=== PATIENT | female | born 1965 | race Caucasian/White ===

== ENCOUNTER 2023-08-17 06:49 | Inpatient (IN) | payer BC ==
[2023-08-17] MEDS ORDERED: DIAZEPAM 2 MG TABLET ONE ×2 (07:29→07:32)
[2023-08-17 07:45] LABS: Absolute Eosinophils 0.1 K/uL (0-0.5); Absolute Lymphocytes (CBC) 1.6 K/uL (0.7-4.9); Absolute Monocytes 0.4 K/uL (0.1-1.3); Basophils % 0.5 % (0-1.3); Eosinophils % 2.5 % (0-4.4); Hemoglobin 14.4 g/dL (12.0-15.0); MCH 33.9 pg (27.0-35.0); MCHC 33.4 g/dL (32.0-36.0); MCV 101.3 fL (80-100); MPV 7.7 fL (7.6-11.3); Nucleated Red Blood Cells % 0.2 % (0-0); Platelets 184 thou/uL (152-406); RBC Red Blood Cell Count 4.24 M/uL (3.86-4.86); Red Cell Distribution Width 12.2 % (12.1-15.2)
[2023-08-17 07:46] LABS: PT Prothrombin Time 10.2 SECONDS (9.5-12.5); PTT, Activated Partial Thromb 31.5 SECONDS (24.3-36.9); Protime INR 0.93
--- NOTE | 2023-08-17 08:02 | RAD REPORT ---
EXAM DESCRIPTION: Lauren Single View08/17/2023 7:56 am CLINICAL HISTORY: Shortness of breath COMPARISON: none FINDINGS: Lungs are hyperaerated. The lungs appear clear of acute infiltrate. The heart is normal size IMPRESSION: No acute abnormalities displayed
[2023-08-17 08:03] LABS: Albumin 4.2 g/dL (3.4-5.0); Albumin/Globulin Ratio 1.1 (1.1-1.8); Anion Gap 11.3 mEq/L (5.0-15.0); Bilirubin Direct 0.4 mg/dL (0-0.2); Bilirubin Indirect, Calculated 1.3 mg/dL (0.2-0.8); Bilirubin Total 1.7 mg/dL (0.2-1.0); Globulin 3.7 g/dL (2.3-3.5); Magnesium 1.6 mg/dL (1.6-2.4); Potassium 4.3 mEq/L (3.5-5.1); Protein, Total 7.9 g/dL (6.4-8.2); Troponin High Sensitivity 3.3 pg/mL (<58.9)
--- NOTE | 2023-08-17 08:22 | RAD REPORT ---
EXAM DESCRIPTION: CT - Head Brain Wo Cont - 08/17/2023 8:12 am CLINICAL HISTORY: Blurred vision and dizziness COMPARISON: None TECHNIQUE: Computed axial tomography of the head was obtained. IV contrast was not requested. All CT scans are performed using dose optimization technique as appropriate and may include automated exposure control or mA/KV adjustment according to patient size. FINDINGS: An intracranial bleed is not seen The ventricles are normal in caliber No extra-axial fluid collection is noted. No significant hypodensity within the brain. Fluid within the sinuses/ mastoids is not seen. IMPRESSION: No acute intracranial abnormality is seen If patient's symptoms persist MRI of the brain would be recommended
--- NOTE | 2023-08-17 08:28 | RAD REPORT ---
EXAM DESCRIPTION: Johan Angio08/17/2023 8:12 am CLINICAL HISTORY: Diplopia COMPARISON: None TECHNIQUE: 100 cc Isovue [address] angiogram of the neck was obtained. 3D MIPS reconstruction performed. All CT scans are performed using dose optimization technique as appropriate and may include automated exposure control or mA/KV adjustment according to patient size. FINDINGS: Visualized great vessels unremarkable Minimal plaque is present within the internal carotid, external carotid, common carotid and vertebral arteries bilaterally. Vertebral arteries unremarkable No dissection is seen. No high-grade stenosis Nascet crieria Mild stenosis 0 to 49 % Moderate stenosis 50-69% Severe stenosis 70-99% IMPRESSION: No significant abnormality is displayed
--- NOTE | 2023-08-17 08:28 | RAD REPORT ---
EXAM DESCRIPTION: CTHead angio08/17/2023 8:12 am CLINICAL HISTORY: Blurred vision and dizziness COMPARISON: none TECHNIQUE: 100 cc Isovue [address] angiogram of the head was obtained. 3D MIPS reconstruction performed. All CT scans are performed using dose optimization technique as appropriate and may include automated exposure control or mA/KV adjustment according to patient size. FINDINGS: The distal internal carotid, basilar, anterior cerebral, middle cerebral and posterior cer ebral arteries do not demonstrate a significant stenosis An aneurysm is not seen No large vessel occlusion IMPRESSION: No significant abnormality is displayed
--- NOTE | 2023-08-17 09:26 | RAD REPORT ---
EXAM DESCRIPTION: US - Abdomen Exam Limited - 08/17/2023 8:46 am CLINICAL HISTORY: Abdominal pain. abnormal LFT COMPARISON: None. FINDINGS: A cholecystectomy has been performed Increased hepatic echotexture. A lesion not seen The biliary tree is normal caliber. Spleen measures 8 centimeters IMPRESSION: Increased hepatic echotexture consistent with fatty infiltration
--- NOTE | 2023-08-17 09:40 | ER ---
Nurse's Notes [facility] Name: Bee Casillas Age: 58 yrs Sex: Female : 1965 Arrival Date: 08/17/2023 Time: 06:49 Bed 8 Private MD: Diagnosis: Dizziness and giddiness;Tremor, unspecified;Ataxic gait Presentation: 08/16 07:04 Chief complaint: Patient states: Not feeling well, shaky, fatigue, off balanced, ll1 blurred vision for past three days. No fever or N/V/D. Coronavirus screen: Client denies travel out of the [place] in the last 14 days. At this time, the client does not indicate any symptoms associated with coronavirus-19. Ebola Screen: Patient denies travel to an Ebola-affected area in the 21 days before illness onset. Initial Sepsis Screen: Does the patient meet any 2 criteria? No. Patient's initial sepsis screen is negative. Does the patient have a suspected source of infection? No. Patient's initial sepsis screen is negative. Risk Assessment: Do you want to hurt yourself or someone else? Patient reports no desire to harm self or others. Onset of symptoms was August 15, 2023. 07:04 Method Of Arrival: Ambulatory ll1 07:04 Acuity: AJITH 3 ll1 Triage Assessment: 07:00 Headache History: The patient has had previous headaches and this one is similar to rs5 previous episodes. Pain: Also complains of. 07:00 Pain: Complains of pain in head Pain currently is 3 out of 10 on a pain scale. Quality rs5 of pain is described as aching, Pain began 4 hours ago. Is continuous. 07:06 General: Appears in no apparent distress. Behavior is calm, cooperative, appropriate ll1 for age. Pain: Denies pain. Neuro: Reports blurred vision dizziness, headache. Respiratory: Reports shortness of breath. Historical: - Allergies: 07:03 Sulfa (Sulfonamide Antibiotics); ll1 07:03 Compazine; ll1 - PMHx: 07:03 Hyperlipidemia; Hypertension; ll1 - Immunization history:: Adult Immunizations up to date. - Infectious Disease History:: Denies. - Social history:: Smoking status: Patient denies any tobacco usage or history of. - Family history:: not pertinent. - Hospitalizations: : No recent hospitalization is reported. Screenin:00 [facility] ED Fall Risk Assessment (Adult) History of falling in the last 3 months, rs5 including since admission No falls in past 3 months (0 pts) Confusion or Disorientation No (0 pts) Intoxicated or Sedated No (0 pts) Impaired Gait No (0 pts) Mobility Assist Device Used No (0 pt) Altered Elimination No (0 pt) Score/Fall Risk Level 0 - 2 = Low Risk Oriented to surroundings, Maintained a safe environment. 07:00 Abuse screen: Denies threats or abuse. Nutritional screening: No deficits noted. rs5 Tuberculosis screening: No symptoms or risk factors identified. Assessment: 07:00 General: Appears in no apparent distress. uncomfortable, Behavior is cooperative, rs5 anxious. Pain: Complains of pain in head Pain currently is 3 out of 10 on a pain scale. Quality of pain is described as aching, Is continuous. Neuro: Level of Consciousness is awake, alert, obeys commands, Oriented to person, place, time, situation, Reports blurred vision dizziness. Cardiovascular: Patient's skin is warm and dry. Rhythm is regular. Respiratory: Airway is patent Respiratory effort is even, unlabored, Respiratory pattern is regular, symmetrical. GI: Abdomen is round non-distended, Abd is soft and non tender X 4 quads. : No signs and/or symptoms were reported regarding the genitourinary system. EENT: No signs and/or symptoms were reported regarding the EENT system. Derm: Skin is intact, Skin is dry, Skin is normal, Skin temperature is warm. Musculoskeletal: Range of motion: intact in all extremities. 08:11 Reassessment: Patient and/or family updated on plan of care and expected duration. Pain rs5 level reassessed. Patient is alert, oriented x 3, equal unlabored respirations, skin warm/dry/pink. 09:07 Reassessment: Patient appears in no apparent distress at this time. No changes from ld1 previously documented assessment. Patient and/or family updated on plan of care and expected duration. Pain level reassessed. Patient is alert, oriented x 3, equal unlabored respirations, skin warm/dry/pink. 10:34 Reassessment: Patient appears in no apparent distress at this time. No changes from ld1 previously documented assessment. Patient and/or family updated on plan of care and expected duration. Pain level reassessed. 12:42 Reassessment: Patient appears in no apparent distress at this time. No changes from ld1 previously documented assessment. Patient and/or family updated on plan of care and expected duration. Pain level reassessed. Vital Signs: 07:04 BP 141 / 87; Pulse 99; Resp 18; Temp 98.4; Pulse Ox 99% on R/A; Weight 63.5 kg; Height ll1 5 ft. 9 in. ; Pain 0/10; 08:00 BP 127 / 80; Pulse 94; Resp 18; Pulse Ox 96% on R/A; ld1 09:07 Pulse 93; Resp 18; Pulse Ox 97% on R/A; ld1 10:34 BP 141 / 98; Pulse 115; Resp 18; Pulse Ox 98% on R/A; ld1 12:42 Pulse 86; Resp 18; Pulse Ox 97% on R/A; ld1 07:04 Body Mass Index 20.67 (63.50 kg, 175.26 cm) ll1 07:04 Pain Scale: Adult ll1 ED Course: 06:53 Patient arrived in ED. gm2 06:59 Adria Kerns MD is Attending Physician. rn 06:59 Charity Pugh, GUCCI is Primary Nurse. ld1 07:00 Arm band placed on Patient placed in an exam room, on a stretcher. ll1 07:00 Patient has correct armband on for positive identification. Placed in gown. Bed in low rs5 position. Call light in reach. Side rails up X2. 07:00 No provider procedures requiring assistance completed. rs5 07:02 Ashutosh Tay, RN is Primary Nurse. rs5 07:06 Triage completed. ll1 07:20 Inserted saline lock: 20 gauge in right antecubital area, using aseptic technique. rs5 Blood collected. 07:58 Chest Single View XRAY In Process Unspecified. EDMS 08:13 CT Head Brain wo Cont In Process Unspecified. EDMS 08:[address] In Process Unspecified. EDMS 08:[address] In Process Unspecified. EDMS 08:47 US Abdomen Limited In Process Unspecified. EDMS 09:38 Ronal Heart MD is Hospitalizing Provider. rn 12:00 Patient admitted, IV remains in place. rs5 Administered Medications: 07:34 Drug: Diazepam PO 2 mg PO once Route: PO; ld1 08:00 Follow up: Response: No adverse reaction rs5 Medication: 07:34 VIS not applicable for this client. rs5 Outcome: 09:39 Decision to Hospitalize by Provider. rn 12:00 Admitted to ER Hold. Please see [facility] for further documentation. rs5 12:00 Condition: stable 12:00 Instructed on the need for admit, Demonstrated understanding of instructions, follow-up care, 18:20 Patient left the ED. ld1 Signatures: Dispatcher [employer] EDMS Adria Kerns MD MD rn Lewis, Lynsay, RN RN ll1 Charity Pugh RN RN ld1 Ashutosh Tay RN RN rs5 Beba Echeverria 2 Corrections: (The following items were deleted from the chart) 15:29 10:00 Patient admitted, IV remains in place. rs5 rs5 15:29 10:05 Admitted to ER Hold. Please see [facility] for further documentation. rs5 rs5 15:29 10:05 Condition: stable rs5 rs5 15:29 10:05 Instructed on the need for admit, Demonstrated understanding of instructions, rs5 follow-up care, rs5
--- NOTE | 2023-08-17 09:40 | EDPHYS ---
Physician Documentation [facility] Name: Bee Casillas Age: 58 yrs Sex: Female : 1965 Arrival Date: 08/17/2023 Time: 06:49 Bed 8 Private MD: ED Physician Adria Kerns HPI: 08/16 07:47 This 58 yrs old Female presents to ER via Ambulatory with complaints of shaking, rn balance is off, Headache, Dizziness. 07:50 Patient reports does not feel well. Reports 2 days of intermittent dizziness, tremors rn and shaking, feels off balance and headache. No trauma. Has never happened to her before. States only occasional drinker. No recent medication changes or cessation. Does not take SSRIs. No fever. No vomiting or diarrhea.. 07:51 Onset: The symptoms/episode began/occurred 2 day(s) ago. Severity of symptoms: At their rn worst the symptoms were moderate in the emergency department the symptoms have improved. The patient has not experienced similar symptoms in the past. The patient has not recently seen a physician. Historical: - Allergies: 07:03 Sulfa (Sulfonamide Antibiotics); ll1 07:03 Compazine; ll1 - PMHx: 07:03 Hyperlipidemia; Hypertension; ll1 - Immunization history:: Adult Immunizations up to date. - Infectious Disease History:: Denies. - Social history:: Smoking status: Patient denies any tobacco usage or history of. - Family history:: not pertinent. - Hospitalizations: : No recent hospitalization is reported. ROS: 07:51 Constitutional: Negative for fever, chills, and weight loss, Eyes: Negative for injury, rn pain, redness, and discharge, Neck: Negative for injury, pain, and swelling, Cardiovascular: Negative for chest pain, palpitations, and edema, Respiratory: Negative for shortness of breath, cough, wheezing, and pleuritic chest pain, Abdomen/GI: Negative for abdominal pain, nausea, vomiting, diarrhea, and constipation, Back: Negative for injury and pain, MS/Extremity: Negative for injury and deformity, Skin: Negative for injury, rash, and discoloration, Neuro: Positive for headache and dizziness Exam: 07:51 Constitutional: This is a well developed, well nourished patient who is awake, alert, rn and in no acute distress. Head/Face: Normocephalic, atraumatic. Eyes: Pupils equal round and reactive to light, extra-ocular motions intact. ENT: Dry mucous membranes Cardiovascular: Regular rate and rhythm. No pulse deficits. Respiratory: No increased work of breathing, no retractions or nasal flaring. Abdomen/GI: Soft, non-tender MS/ Extremity: Pulses equal, no cyanosis. Neuro: Awake and alert, GCS 15, oriented to person, place, time, and situation. Cranial nerves II-XII grossly intact. Motor strength 5/5 in all extremities. Sensory grossly intact. Slightly ataxic gait, positive Romberg. 11:10 ECG was reviewed by the Attending Physician. rn Vital Signs: 07:04 BP 141 / 87; Pulse 99; Resp 18; Temp 98.4; Pulse Ox 99% on R/A; Weight 63.5 kg; Height ll1 5 ft. 9 in. ; Pain 0/10; 08:00 BP 127 / 80; Pulse 94; Resp 18; Pulse Ox 96% on R/A; ld1 09:07 Pulse 93; Resp 18; Pulse Ox 97% on R/A; ld1 10:34 BP 141 / 98; Pulse 115; Resp 18; Pulse Ox 98% on R/A; ld1 12:42 Pulse 86; Resp 18; Pulse Ox 97% on R/A; ld1 07:04 Body Mass Index 20.67 (63.50 kg, 175.26 cm) ll1 07:04 Pain Scale: Adult ll1 MDM: 06:59 Patient medically screened. rn 09:35 Differential Diagnosis Cerebral infarction, dizziness, vertigo, electrolyte disorder, rn withdrawal, hyperthyroid state. Data reviewed: vital signs, nurses notes, lab test result(s), EKG, radiologic studies, CT scan, and as a result, I will admit patient. Consideration of Admission/Observation Patient was admitted/placed on observation. Escalation of care including admission/observation considered. Counseling: I had a detailed discussion with the patient and/or guardian regarding the historical points, exam findings, and any diagnostic results supporting the discharge/admit diagnosis, lab results, radiology results, the need for further work-up and treatment in the hospital. Response to treatment: There is no appreciated change of the patient's symptoms at this time. ED course: No change in clinical state. Blood pressure has improved. CT head and angio head and neck without acute findings. Patient not improved at all, difficulty walking with dizziness, will admit for neurological consultation, MRI and further workup.. 08/16 07:25 Order name: Basic Metabolic Panel; Complete Time: 08:12 rn 08/16 07:25 Order name: CBC with Diff; Complete Time: 08:12 rn 08/16 07:25 Order name: Hepatic Function; Complete Time: 08:12 rn 08/16 07:25 Order name: Magnesium; Complete Time: 08:12 rn 08/16 07:25 Order name: Protime (+inr); Complete Time: 08:12 rn 08/16 07:25 Order name: Ptt, Activated; Complete Time: 08:12 rn 08/16 07:25 Order name: Troponin High Sensitivity; Complete Time: 08:12 rn 08/16 09:35 Order name: TSH; Complete Time: 10:09 rn 08/16 09:35 Order name: T4 Free; Complete Time: 10:09 rn 08/16 16:11 Order name: Vitamin B12 Level; Complete Time: 17:25 [facility] 08/16 07:25 Order name: CT Head Brain wo Cont; Complete Time: 09:04 rn 08/16 07:25 Order name: Chest Single View XRAY; Complete Time: 08:12 rn 08/16 07:25 Order name: Head Angio CT; Complete Time: 09:04 rn 08/16 07:25 Order name: Neck Angio CT; Complete Time: 09:04 rn 08/16 08:15 Order name: US Abdomen Limited; Complete Time: 09:30 rn 08/16 17:40 Order name: MRI [facility] 08/16 10:29 Order name: CONS Physician Consult [facility] 08/16 07:25 Order name: Cardiac monitoring; Complete Time: 07:34 08/16 07:25 Order name: EKG - Nurse/Tech; Complete Time: 07:42 08/16 07:25 Order name: IV Saline Lock; Complete Time: 07:34 08/16 07:25 Order name: Labs collected and sent; Complete Time: 07:34 08/16 07:25 Order name: NPO; Complete Time: 07:34 08/16 07:25 Order name: O2 Per Protocol; Complete Time: 07:34 08/16 07:25 Order name: O2 Sat Monitoring; Complete Time: 07:34 08/16 16:25 Order name: Labs - recollect needed; Complete Time: 16:54 ll1 EC:10 Rate is 77 beats/min. Rhythm is regular. QRS Lulu is Normal. VA interval is normal. QRS rn interval is normal. QT interval is normal. No Q waves. T waves are Normal. No ST changes noted. Clinical impression: Normal ECG. Interpreted by me. Reviewed by me. Administered Medications: 07:34 Drug: Diazepam PO 2 mg PO once Route: PO; ld1 08:00 Follow up: Response: No adverse reaction rs5 Disposition Summary: 08/17/23 09:39 Hospitalization Ordered Notes: Hospitalization Status: Observation rn Provider: Ronal Heart rn Condition: Stable rn Problem: new rn Symptoms: are unchanged rn Bed/Room Type: Standard rn Location: Telemetry/MedSurg (observation)(08/17/23 17:38) 6 Room Assignment: [facility](08/17/23 17:38) 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 EDMS EDMS 07:26 07:26 Chest Single View+RAD.RAD.BRZ ordered. EDMS EDMS 07:26 07:26 Head Angio+CT.RAD.BRZ ordered. EDMS EDMS 07:26 07:26 Neck Angio+CT.RAD.BRZ ordered. EDND EDMS 07:51 07:50 Patient reports does not feel well. Reports. rn rn 12:30 09:39 Telemetry/MedSurg (observation) juanis valverde 12:30 09:39 juanis valverde 14:08 12:30 [facility] ER HOLD jlYesica bc6 14:08 12:30 ERHOLD- nicolle bc6 14:55 14:08 Telemetry/MedSurg (observation) bc6 bc6 14:55 14:08 403 bc6 bc6 17:38 14:55 [facility] ER HOLD bc6 6 17:38 14:55 bc6 6
[2023-08-17 10:08] LABS: Thyroid Stimulating Hormone 1.7 uIU/mL (0.358-3.740)
[2023-08-17] MEDS: DIAZEPAM 10 MG/2 ML INJ SYRINGE IV ONE ×3 (10:45→16:10)
[2023-08-17] MEDS ORDERED: DIAZEPAM 10 MG/2 ML INJ SYRINGE ONE ×2 (11:06→13:54)
--- NOTE | 2023-08-17 13:24 | P.HP ---
Certification for Inpatient Patient admitted to: Inpatient Patient will require the following post-hospital care: Home Health Services Practitioner: I am a practitioner with admitting privileges, knowledge of patient current condition, hospital course, and medical plan of care. Services: Services provided to patient in accordance with Admission requirements found in Title 42 Section 412.3 of the Code of Federal Regulations Patient History Date of Service: 08/17/23 Reason for admission: Ataxia, tremor History of Present Illness: 58 yrs old Female with a past medical history of hypertension presents ataxia. She reports symptoms started on Thursday 2 days ago. She reports generalized tremors, that is getting progressively worse. She reports unsteady gait, unable to ambulate independently. She reports shortness of breath that is worse with exertion. She denies history of PE. No reported use of tobacco. She reports occasional alcohol use every other day. 1-2 drinks. She reports working full- time, no reported recreational drug use. No reported trauma or falls. No reported recent infection. She reports taking a new medication, SSRI and stopping abruptly., Paxil. She report being on the medication for 10 days and stopping on Thursday. Symptoms started on Thursday. Plan to admit for ataxia, unspecified tremors. Dizziness. Hyponatremia. Transaminitis. With neurology to consult, at bedside. TSH normal 1.700, sodium 127, elevated liver enzymes, AST 112, ALT 65, ALT alk phos 141, chest x-ray FINDINGS: Lungs are hyperaerated. The lungs appear clear of acute infiltrate. The heart is normal size IMPRESSION: No acute abnormalities displayed CTA of the neck IMPRESSION:No significant abnormality is displayed, CTA of the head No large vessel occlusion IMPRESSION: No significant abnormality is displayed, head CT bIMPRESSION: No acute intracranial abnormality is seen If patient's symptoms persist MRI of the brain would be recommended, MRI ordered rule out CVA. CT PE protocol ordered for dyspnea rule out PE. Allergies prochlorperazine [From Compazine] Allergy (Unknown, Verified 07/14/16 03:54) Anaphylaxis Sulfa (Sulfonamide Antibiotics) Allergy (Unknown, Verified 07/14/16 03:54) Anaphylaxis Home Medications: Metoprolol Tartrate [Lopressor] 1 tab PO DAILY 07/14/16 Ondansetron [Zofran (Odt)*] 4 mg PO Q6H PRN #10 tab 07/14/16 Rosuvastatin [Crestor*] 20 mg PO DAILY 07/14/16 levoFLOXacin [Levaquin] 500 mg PO DAILY #7 tab 07/14/16 metroNIDAZOLE [Flagyl*] 500 mg PO Q8H #21 tablet 07/14/16 - Past Medical/Surgical History Has patient received pneumonia vaccine in the past: Yes Diabetic: No -: HTN -: HYPERLIPIDEMIA -: HYSTERECTOMY - Social History Smoking Status: Former smoker Caffeine use: Yes Review of Systems Per HPI Physical Examination - Vital Signs Temperature: 98.4 F Blood Pressure: 138/92 Pulse: 70 Respirations: 18 Pulse Ox (%): 99 - Physical Exam General: Alert, In no apparent distress, Oriented x3, Other (Generalized tremors) HEENT: Atraumatic, Normocephalic, PERRLA Neck: 2+ carotid pulse no bruit, JVD not distended Respiratory: Clear to auscultation bilaterally, Normal air movement Cardiovascular: Normal pulses, Regular rate/rhythm Capillary refill: <2 Seconds Gastrointestinal: Normal bowel sounds, Soft and benign Musculoskeletal: No clubbing, No swelling Integumentary: No breakdown, No significant lesion Neurological: Other (Essential tremor), Abnormal gait - Studies Laboratory Data (last 24 hrs) 08/17/23 08/17/23 08/17/23 07:34 07:34 07:34 WBC 4.20 L Hgb 14.4 Hct 43.0 Plt Count 184 PT 10.2 INR 0.93 APTT 31.5 Sodium 127 L Potassium 4.3 BUN 8 Creatinine 0.70 Glucose 132 H Magnesium 1.6 Total Bilirubin 1.7 H AST 112 H ALT 65 H Alkaline Phosphatase 141 H Assessment and Plan - Plan Assessment plan New onset ataxia Essential tremors Neuroconsult, MRI of the brain ordered, Fall precaution PT eval, as needed Valium she reports symptoms started on Thursday 2 days ago. She reports generalized tremors, that is getting progressively worse. She reports unsteady gait, unable to ambulate independently. She reports taking a new medication, SSRI and stopping abruptly., Paxil. She report being on the medication for 10 days and stopping on Thursday. Symptoms started on Thursday. Laboratory evaluation TSH normal 1.700, CTA of the neck IMPRESSION:No significant abnormality is displayed, CTA of the head No large vessel occlusion IMPRESSION: No significant abnormality is displ ayed, head CT bIMPRESSION: No acute intracranial abnormality is seen If patient's symptoms persist MRI of the brain would be recommended, MRI ordered Dyspnea with exertion CT PE protocol rule out PE, 02 2L keep sats >92% chest x-ray FINDINGS: Lungs are hyperaerated. The lungs appear clear of acute infiltrate. The heart is normal size IMPRESSION: No acute abnormalities di splayed Hyponatremia IV fluids, nephrology consult sodium 127, hypertension Hyperlipidemia Resume home antihypertensive Transaminitis History of alcohol use elevated liver enzymes, AST 112, ALT 65, ALT alk phos 141, Trend liver enzyme Hepatitis panel Abdominal ultrasound IMPRESSION: Increased hepatic echotexture consistent with fatty infiltration Full code DVT Lovenox Diet cardiac Disposition Home with home health PT if symptoms persist Discharge Plan: Home (With home PT) - Advance Directives Does patient have a Living Will: No Does patient have a Durable POA for Healthcare: No - Code Status/Comfort Care Code Status: Full Code Critical Care: No Time Spent Managing Pts Care (In Minutes): 55
[2023-08-17] MEDS: DIAZEPAM 2 MG TABLET PO PRN (14:00)
[2023-08-17] MEDS: NA CHLORIDE 0.9% 1,000 ML IV SCH (15:23)
[2023-08-17] MEDS ORDERED: ONDANSETRON 4 MG/2 ML VIAL IV PRN (15:23)
[2023-08-17] MEDS ORDERED: ACETAMINOPHEN 500 MG TAB PO PRN (15:23)
--- NOTE | 2023-08-17 17:39 | RAD REPORT ---
EXAM DESCRIPTION: MRI - Brain Wo Cont - 08/17/2023 4:42 pm CLINICAL HISTORY: ataxia COMPARISON: Head CT and CT angiogram of earlier the same day. TECHNIQUE: Multiplanar multisequence MRI of the brain performed without IV contrast. FINDINGS: No evidence of acute infarct or other diffusion signal abnormality. No evidence of acute intracranial hemorrhage or abnormal extra-axial fluid collections. Ventricular caliber within normal for age. Midline structures are unremarkable. No significant white matter signal abnormalities. No mass effect or midline shift. Major vascular flow voids are preserved. Mastoid air cells and paranasal sinuses are clear. IMPRESSION: No acute intracranial process. No evidence of ventriculomegaly or mass effect.
--- NOTE | 2023-08-17 20:03 | RAD REPORT ---
EXAM DESCRIPTION: MRI - C Spine Wo Cont - 08/17/2023 4:42 pm CLINICAL HISTORY: Knee hyper reflexia. Tremors. Rule out cord compression COMPARISON: CTA neck of the same day. TECHNIQUE: Multiplanar multisequence MRI of the cervical spine, obtained without IV contrast. FINDINGS: Cervical vertebral bodies are normal in height. Gentle reversal of lordosis with multileve l minimal spondylolisthesis secondary to endplate and facet remodeling. No suspicious marrow edema or marrow replacing process. Cerebellar tonsils and mid-line skull base show no suspicious finding. No significant finding at the C1 and C2 levels. C2-3 level: No significant findings. C3-4 level: Mild posterior disc bulge. Bilateral facet and uncovertebral joint arthropathy contributi ng to mild left more than right neural foraminal narrowing. No central canal stenosis. C4-5 level: Disc height loss with broad-based posterior disc osteophyte complex, mildly flattening th e ventral aspect of the cord. Overall mild central canal stenosis. Facet and uncovertebral joint arth ropathy contributes to bilateral neural foraminal narrowing, at least of moderate degree. C5-6 level: Mild disc height loss. Asymmetric disc bulge with left more than right facet and uncovert ebral joint spurring narrowing the left lateral recess. Mild right and moderate left neural foraminal narrowing. Central canal is otherwise patent. C6-7 level: Broad-based posterior disc bulge. Mild facet and uncovertebral joint arthropathy worse on the left. Mild left neural foraminal narrowing. Central canal is patent. C7-T1 level: No significant findings. Cervical cord shows no focal narrowing, expansion or signal abnormality. IMPRESSION: Moderate spondylotic cervical spine changes as above, with up to mild central canal sten osis at C4-5 and at least moderate degrees of neural foraminal narrowing bilaterally at that level. M ilder degrees of neural foraminal narrowing at other levels as detailed above.
--- NOTE | 2023-08-17 22:06 | P.CNS ---
Date of Consult: 08/17/23 Reason for Consult: Hyponatremia Requesting Physician: Ronal Heart Chief Complaint: Ataxia, tremor History of Present Illness: 58 yrs old Female with a past medical history of hypertension presents ataxia. She reports symptoms started on Thursday 2 days ago. She reports generalized tremors, that is getting progressively worse. She reports unsteady gait, unable to ambulate independently. She reports shortness of breath that is worse with exertion. She denies history of PE. No reported use of tobacco. She reports occasional alcohol use every other day. 1-2 drinks. She reports working full- time, no reported recreational drug use. No reported trauma or falls. No reported recent infection. She reports taking a new medication, SSRI and stopping abruptly., Paxil. She report being on the medication for 10 days and stopping on Thursday. Symptoms started on Thursday. Plan to admit for ataxia, unspecified tremors. Dizziness. Hyponatremia. Transaminitis. With neurology to consult, at bedside. TSH normal 1.700, sodium 127, elevated liver enzymes, AST 112, ALT 65, ALT alk phos 141, chest x-ray FINDINGS: Lungs are hyperaerated. The lungs appear clear of acute infiltrate. The heart is normal size IMPRESSION: No acute abnormalities displayed CTA of the neck IMPRESSION:No significant abnormality is displayed, CTA of the head No large vessel occlusion IMPRESSION: No significant abnormality is displayed, head CT bIMPRESSION: No acute intracranial abnormality is seen If patient's symptoms persist MRI of the brain would be recommended, MRI ordered rule out CVA. CT PE protocol ordered for dyspnea rule out PE. [id number] 07:47 This 58 yrs old Female presents to ER via Ambulatory with complaints of shaking, rn balance is off, Headache, Dizziness. 07:50 Patient reports does not feel well. Reports 2 days of intermittent dizziness, tremors rn and shaking, feels off balance and headache. No trauma. Has never happened to her before. States only occasional drinker. No recent medication changes or cessation. Does not take SSRIs. No fever. No vomiting or diarrhea.. 07:51 Onset: The symptoms/episode began/occurred 2 day(s) ago. Severity of symptoms: At their rn worst the symptoms were moderate in the emergency department the symptoms have improved. The patient has not experienced similar symptoms in the past. The patient has not recently seen a physician. Allergies prochlorperazine [From Compazine] Allergy (Unknown, Verified 07/14/16 03:54) Anaphylaxis Sulfa (Sulfonamide Antibiotics) Allergy (Unknown, Verified 07/14/16 03:54) Anaphylaxis Home medications list reviewed: Yes Home Medications: Metoprolol Tartrate [Lopressor] 1 tab PO BID 07/14/16 - Past Medical/Surgical History Diabetic: No -: HTN -: HLD -: HYSTERECTOMY - Social History Caffeine use: Yes Review of Systems 10-point ROS is otherwise unremarkable Neurological: Other (Tremor) Physical Examination Temp Pulse Resp BP Pulse Ox 98.4 F 86 18 141/98 H 97 08/17/23 21:49 08/17/23 21:56 08/17/23 21:56 08/17/23 21:54 08/17/23 20:00 General: Oriented x3, Cooperative HEENT: Atraumatic Neck: Supple Respiratory: Normal air movement Cardiovascular: No edema, Regular rate/rhythm Gastrointestinal: Soft and benign, Non-distended Musculoskeletal: No clubbing, No contractures Integumentary: No rashes, No cyanosis Neurological: Normal speech Laboratory Data (last 24 hrs) 08/17/23 08/17/23 08/17/23 07:34 07:34 07:34 WBC 4.20 L Hgb 14.4 Hct 43.0 Plt Count 184 PT 10.2 INR 0.93 APTT 31.5 Sodium 127 L Potassium 4.3 BUN 8 Creatinine 0.70 Glucose 132 H Magnesium 1.6 Total Bilirubin 1.7 H AST 112 H ALT 65 H Alkaline Phosphatase 141 H Imagings Data: [id number] EXAM DESCRIPTION: [facility] Single View08/17/2023 7:56 am CLINICAL HISTORY: Shortness of breath COMPARISON: none FINDINGS: Lungs are hyperaerated. The lungs appear clear of acute infiltrate. The heart is normal size IMPRESSION: No acute abnormalities displayed [id number] EXAM DESCRIPTION: US - Abdomen Exam Limited - 08/17/2023 8:46 am CLINICAL HISTORY: Abdominal pain. abnormal LFT COMPARISON: None. FINDINGS: A cholecystectomy has been performed Increased hepatic echotexture. A lesion not seen The biliary tree is normal caliber. Spleen measures 8 centimeters IMPRESSION: Increased hepatic echotexture consistent with fatty infiltration Conclusions/Impression: Hyponatremia -Continue IVF with NS HTN Tachycardia -Consider Propranolol Hyperglycemia -Check A1C Elevated AST/ ALT Alcoholic Hepatitis Fatty Liver -Monitor LFT Macrocytosis -B12 normal -Start MVI Case reviewed with the hospitalist team Thank you kindly for the consultation
--- NOTE | 2023-08-18 00:44 | CON ---
Date of Consultation: 08/17/2023 Reason For Consultation: Consultation called because of tremors. History Of Present Illness: Ms. Casillas is a 58-year-old patient with hypertension and dyslipidemia, who reportedly went to bed okay and on Thursday woke up with tremors and difficulty ambulating. She said the symptoms began a few days after she took a medication called ibutamoren, which she had only started about 2 weeks previously. Symptoms consisted of flexion-extension type tremors, worse with activity such as full extension and flexion of the upper extremities and tendency to lose balance and fall. She was seen at [facility] Emergency Room, had a negative head CT scan and CT angiog kane of head and neck. MRI of the brain was unremarkable. Cervical spine MRI showed mild multilevel canal and nerve root stenosis, but no significant findings. Blood work remarkable for elevated liver enzymes, AST 112, ALT 65, alkaline phosphatase 141, indirect bilirubin 1.3, direct 0.4, total biliru bin elevated to also 1.7. Sodium down to 127 and chloride down to 92. Her B12 level is normal at 75 9. TSH 1.7 and free T4 of 0.92. Her complete blood count with differential showed slightly low whit e blood cell count of 4.2. No drug screen done. The patient has no reported history of alcohol, tob acco, or IV drug use. There is occasional alcohol. She received diazepam 2 mg and said that the berkley mor improved significantly. She has received Zofran and Lovenox along with Tylenol. Past Medical History: As noted above. Medications At Home: Metoprolol 50 mg daily, Zofran 4 mg 6 hours as needed, Crestor 20 mg daily, and she received Levaquin previously and Flagyl in the past. Allergies: COMPAZINE AND SULFA DRUGS. Family History: No tremors in her family. Surgical History: Hysterectomy. Social History: Former smoker. Occasional alcohol. No IV drug use. Review of Systems: She denies any fevers, chills, nausea, vomiting, myalgias, arthralgias, rash, headache, weight change . No psychiatric issues. No recent travel to place endemic with infections such as out of the count ry in certain places with infectious diseases. Physical Examination: Vital Signs: Blood pressure 111/74, pulse 84, respiratory rate 15, temperature 97.7, oxygen saturati on 97%. General: Ms. Casillas is lying in the emergency room bed. She is in no acute distress. HEENT: She appears normocephalic, atraumatic. Sclerae are anicteric. Oropharynx pink and moist. Neck: Supple. Chest: Clear. Heart: Regular. Extremities: Show no clubbing, cyanosis, or edema. Neurological: Appears slightly tremulous, more in the right than left upper extremity. Tremor appea rs to be nonpathological and physiological. Tremors do not worsen significantly, as she fully extend s and flexes the upper extremities. She has no cranial nerve deficits, no focal motor deficits. No sensory or incoordination deficits such as dysmetria on finger-nose or difficulty with rapid alternat ing movements [id number]. Symmetric reflexes with around 3+ at the patella, 2 in the upper extremi ties, and 1 at the heels. She will be ambulated with physical therapy and gait belt. Assessment: Ms. Casillas is a 58-year-old patient with medical problems as listed above including dys lipidemia and hypertension, who has a nonpathological physiological tremor of unclear etiology. Trem or perhaps is stress related and has responded for the patient very well to diazepam. She has no ilda dence of stroke or hydrocephalus or Parkinson disease or parkinsonism. The patient showed no evidenc e of alcohol withdrawal. She does have apparent fatty liver with elevated liver enzymes. The tremor is potentially related to her hepatic dysfunction. However, that is typically a negative myoclonus- type flap like tremor which is not what the patient has. Plan: The patient needs a GI workup for her liver-related issues, perhaps evaluate gallbladder. Als o, may consider adding a beta-barbara, propranolol, which may be helpful for her tremor. No evidence of seizure activity and no EEG is indicated at this point. The patient may have short-term benzodia zepine with hoping tapering off within a week. She may be discharged home once worked up by GI and follow up in Dr. Luis's [facility] within a month. KAYODE/ANA Voice ID: [id number] Report ID: [id number]
[2023-08-18 07:37] LABS: Albumin 3.5 g/dL (3.4-5.0); Albumin/Globulin Ratio 1.1 (1.1-1.8); Anion Gap 6.3 mEq/L (5.0-15.0); Globulin 3.2 g/dL (2.3-3.5); Magnesium 1.9 mg/dL (1.6-2.4); Phosphorus 3.7 mg/dL (2.5-4.9); Potassium 4.3 mEq/L (3.5-5.1); Protein, Total 6.7 g/dL (6.4-8.2); Uric Acid 4.4 mg/dL (2.6-6.0)
[2023-08-18 07:52] LABS: Absolute Eosinophils 0.1 K/uL (0-0.5); Absolute Lymphocytes (CBC) 1.8 K/uL (0.7-4.9); Absolute Monocytes 0.5 K/uL (0.1-1.3); Absolute Neutrophil 1.9 K/uL (1.8-8.0); Basophils % 0.5 % (0-1.3); Eosinophils % 2.5 % (0-4.4); Hematocrit 39.9 % (36.0-45.0); Hemoglobin 13.4 g/dL (12.0-15.0); Lymphocytes % 41.8 % (15.3-44.8); MCH 34.1 pg (27.0-35.0); MCHC 33.5 g/dL (32.0-36.0); MCV 101.9 fL (80-100); MPV 8.3 fL (7.6-11.3); Neutrophils % 44.2 % (41.7-73.7); Platelets 148 thou/uL (152-406); RBC Red Blood Cell Count 3.92 M/uL (3.86-4.86); Red Cell Distribution Width 12.5 % (12.1-15.2)
[2023-08-18 08:03] LABS: Specific Gravity 1.018 (1.005-1.030); Sqamous Epithelial <5 /HPF (None Seen); Urine Bacteria 20-50 /HPF (<20); Urine Bilirubin NEGATIVE (Negative); Urine Blood Negative (Negative); Urine Clarity Turbid (Clear); Urine Color Yellow (Yellow); Urine Culture Reflex Order REFLEXED; Urine Glucose NEGATIVE (Negative); Urine Ketones NEGATIVE (Negative); Urine Microscopic Reflex YN ORDER UMIC; Urine Nitrite NEGATIVE (Negative); Urine Protein NEGATIVE (Negative); Urine RBC <5 /HPF (None Seen); Urine Urobilinogen 1+ (Normal); Urine WBC >50 /HPF (<5); Urine WBC Clump Few /HPF (None Seen)
[2023-08-18] MEDS: ENOXAPARIN 40 MG/0.4 ML SQ SCH (08:36)
[2023-08-18] MEDS: MULTIVITAMIN TAB PO SCH (08:36)
--- NOTE | 2023-08-18 09:20 | RAD REPORT ---
EXAM DESCRIPTION: CT - Chest For Pe Angio - 08/18/2023 9:03 am CLINICAL HISTORY: Chest pain. sob COMPARISON: No comparisons TECHNIQUE: CT angiogram of the pulmonary arteries was performed with MIP. All CT scans are performed using dose optimization technique as appropriate and may include automated exposure control or mA/KV adjustment according to patient size. FINDINGS: No evidence of pulmonary thromboembolism. No acute aortic finding demonstrated. The lungs are clear. No significant pericardial or pleural fluid. No concerning bony finding. IMPRESSION: No evidence of pulmonary thromboembolism. No acute lung findings.
--- NOTE | 2023-08-18 17:20 | P.PN ---
Subjective Date of Service: 08/18/23 Chief Complaint: Ataxia, tremor MRI of the brain, ordered neurology consult ordered PT eval for ataxic gait, Valium ordered for tremors Nephrology consulted for hyponatremia - Physical Exam General: Alert, In no apparent distress, Oriented x3, Other (Generalized tremors) HEENT: Atraumatic, Normocephalic, PERRLA Neck: 2+ carotid pulse no bruit, JVD not distended Respiratory: Clear to auscultation bilaterally, Normal air movement Cardiovascular: Normal pulses, Regular rate/rhythm Capillary refill: <2 Seconds Gastrointestinal: Normal bowel sounds, Soft and benign Musculoskeletal: No clubbing, No swelling Integumentary: No breakdown, No significant lesion Neurological: Other (Essential tremor), Abnormal gait Review of Systems Per HPI Physical Examination - Vital Signs Temperature: 97.7 F Blood Pressure: 119/61 Pulse: 78 Respirations: 18 Pulse Ox (%): 100 Assessment And Plan - Plan Assessment plan New onset ataxia Essential tremors Neuroconsult, MRI of the brain ordered, Fall precaution PT eval, as needed Valium she reports symptoms started on Thursday 2 days ago. She reports generalized tremors, that is getting progressively worse. She reports unsteady gait, unable to ambulate independently. She reports taking a new medication, SSRI and stopping abruptly., Paxil. She report being on the medication for 10 days and stopping on Thursday. Symptoms started on Thursday. Laboratory evaluation TSH normal 1.700, CTA of the neck IMPRESSION:No significant abnormality is displayed, CTA of the head No large vessel occlusion IMPRESSION: No significant abnormality is displayed, head CT bIMPRESSION: No acute intracranial abnormality is seen If patient's symptoms persist MRI of the brain would be recommended, MRI ordered IMPRESSION: No acute intracranial process. No evidence of ventriculomegaly or mass effect TSH normal at 0.92 B12 normal at 759 Free T4 normal at 0.[address] PE protocol rule out PE, 02 2L keep sats >92% chest x-ray FINDINGS: Lungs are hyperaerated. The lungs appear clear of acute infiltrate. The heart is normal size IMPRESSION: No acute abnormalities displayed Acute cystitis without hematuria IV fluids, IV Hyponatremia improved with IV fluids IV fluids, nephrology consult sodium 127,, 135 hypertension Hyperlipidemia Resume home antihypertensive Transaminitis improved History of alcohol use elevated liver enzymes, AST 112, ALT 65, ALT alk phos 141, AST 68 ALT 54 alk phos 133 Trend liver enzyme Hepatitis panel canceled Abdominal ultrasound IMPRESSION: Increased hepatic echotexture consistent with fatty infiltration Full code DVT Lovenox Diet cardiac Disposition Home with home health PT if symptoms persist Discharge Plan: Home - Code Status/Comfort Care Code Status: Full Code Critical Care: No Time Spent Managing PTS Care (In Minutes): 35
[2023-08-18] MEDS: CARBIDOPA/LEVODOPA 25/100 TAB PO ONE (20:27)
[2023-08-18 22:36] VITALS: O2SAT 100
[2023-08-19 04:43] LABS: Absolute Eosinophils 0.2 K/uL (0-0.5); Absolute Lymphocytes (CBC) 1.8 K/uL (0.7-4.9); Absolute Monocytes 0.5 K/uL (0.1-1.3); Absolute Neutrophil 2.1 K/uL (1.8-8.0); Basophils % 0.5 % (0-1.3); Eosinophils % 3.6 % (0-4.4); Hematocrit 38.1 % (36.0-45.0); Hemoglobin 12.8 g/dL (12.0-15.0); Lymphocytes % 38.8 % (15.3-44.8); MCHC 33.6 g/dL (32.0-36.0); MCV 101.2 fL (80-100); MPV 8.1 fL (7.6-11.3); Monocytes % 10.3 % (3.3-12.3); Neutrophils % 46.8 % (41.7-73.7); Nucleated Red Blood Cells % 0.1 % (0-0); Platelets 142 thou/uL (152-406); RBC Red Blood Cell Count 3.77 M/uL (3.86-4.86); Red Cell Distribution Width 12.2 % (12.1-15.2)
[2023-08-19 04:55] LABS: Albumin 3.5 g/dL (3.4-5.0); Albumin/Globulin Ratio 1.1 (1.1-1.8); Anion Gap 9.1 mEq/L (5.0-15.0); Bilirubin Total 0.9 mg/dL (0.2-1.0); Globulin 3.2 g/dL (2.3-3.5); Magnesium 1.6 mg/dL (1.6-2.4); Potassium 4.1 mEq/L (3.5-5.1); Protein, Total 6.7 g/dL (6.4-8.2)
--- NOTE | 2023-08-19 08:29 | P.DS ---
Admission Date: 08/17/23 Discharge Date: 08/19/23 Disposition: ROUTINE DISCHARGE Reason for Admission: Ataxia, tremor Brief History of Present Illness: 58 yrs old Female with a past medical history of hypertension presents ataxia. She reports symptoms started on Thursday 2 days ago. She reports generalized tremors, that is getting progressively worse. She reports unsteady gait, unable to ambulate independently. She reports shortness of breath that is worse with exertion. She denies history of PE. No reported use of tobacco. She reports occasional alcohol use every other day. 1-2 drinks. She reports working full- time, no reported recreational drug use. No reported trauma or falls. No reported recent infection. She reports taking a new medication, SSRI and stopping abruptly., Paxil. She report being on the medication for 10 days and stopping on Thursday. Symptoms started on Thursday. Plan to admit for ataxia, unspecified tremors. Dizziness. Hyponatremia. Transaminitis. With neurology to consult, at bedside. TSH normal 1.700, sodium 127, elevated liver enzymes, AST 112, ALT 65, ALT alk phos 141, chest x-ray FINDINGS: Lungs are hyperaerated. The lungs appear clear of acute infiltrate. The heart is normal size IMPRESSION: No acute abnormalities displayed CTA of the neck IMPRESSION:No significant abnormality is displayed, CTA of the head No large vessel occlusion IMPRESSION: No significant abnormality is displayed, head CT bIMPRESSION: No acute intracranial abnormality is seen If patient's symptoms persist MRI of the brain would be recommended, MRI ordered rule out CVA. CT PE protocol ordered for dyspnea rule out PE. - Physical Exam General: Alert, In no apparent distress, Oriented x3, HEENT: Atraumatic, Normocephalic, PERRLA Neck: 2+ carotid pulse no bruit, JVD not distended Respiratory: Clear to auscultation bilaterally, Normal air movement Cardiovascular: Normal pulses, Regular rate/rhythm Capillary refill: <2 Seconds Gastrointestinal: Normal bowel sounds, Soft and benign Musculoskeletal: No clubbing, No swelling Integumentary: No breakdown, No significant lesion Neurological: Alert and oriented x 3, no ataxia, no tremors Hospital Course: 58 year-old female patient presented with gait ataxia, elevated liver enzymes, tremors, Was noted to have transaminitis. Parkinson's-like gait, Condition improved with Valium. IV fluids. Patient was evaluated by neurology. Physical therapy evaluation For gait training evaluation. MRI of the brain no acute abnormality. MRI of the cervical spine IMPRESSION: Moderate spondylotic cervical spine changes as above, with up to mild central canal stenosis at C4-5 and at least moderate degrees of neural foraminal narrowing bilaterally at that level. Milder degrees of neural foraminal narrowing at other levels as detailed above. CT of the head no large vessel occlusion. Patient tolerating diet, stable for discharge to home with follow-up appointment with primary care physician. Need to follow-up with neurology after to discharge PROBLEM: Ataxia Parkinson-like gait evaluated by physical resolved Tremors resolved Transaminitis resolved Hyponatremia resolved Neuro follow-up with Dr. Luis Continue home medicines as previously prescribed GOAL: Clear understanding of disease process INSTRUCTIONS: Physician Discharge Instructions: -DC IV and DC home -Follow-up with PCP in 1 to 2 weeks -Please call Dr. Heart at [phone] if any questions regarding hospital stay -Please call nursing station at [phone] if any nursing or medication quest ions -Return to the emergency room if symptoms worsen Diet: ADA, low sodium Activity: Fall precautions Vital Signs/Physical Exam: Temp Pulse Resp BP Pulse Ox 97.7 F 78 18 119/61 100 08/19/23 07:02 08/19/23 07:02 08/19/23 07:02 08/19/23 07:02 08/19/23 07:02 Laboratory Data at Discharge: WBC 4.60 thou/uL (4.3-10.9) 08/19/23 04:02 Hgb 12.8 g/dL (12.0-15.0) 08/19/23 04:02 Hct 38.1 % (36.0-45.0) 08/19/23 04:02 Plt Count 142 thou/uL (152-406) L 08/19/23 04:02 PT 10.2 SECONDS (9.5-12.5) 08/17/23 07:34 INR 0.93 08/17/23 07:34 APTT 31.5 SECONDS (24.3-36.9) 08/17/23 07:34 Sodium 134 mEq/L (136-145) L 08/19/23 04:02 Potassium 4.1 mEq/L (3.5-5.1) 08/19/23 04:02 BUN 8 mg/dL (7-18) 08/19/23 04:02 Creatinine 0.64 mg/dL (0.55-1.02) 08/19/23 04:02 Glucose 132 mg/dL (74-106) H 08/19/23 04:02 Uric Acid 4.4 mg/dL (2.6-6.0) 08/18/23 06:44 Phosphorus 3.7 mg/dL (2.5-4.9) 08/18/23 06:44 Magnesium 1.6 mg/dL (1.6-2.4) 08/19/23 04:02 Total Bilirubin 0.9 mg/dL (0.2-1.0) 08/19/23 04:02 AST 47 U/L (15-37) H 08/19/23 04:02 ALT 17 U/L (13-56) 08/19/23 04:02 Alkaline Phosphatase 130 U/L (45-117) H 08/19/23 04:02 Home Medications: Metoprolol Tartrate [Lopressor] 1 tab PO BID 07/14/16 Physician Discharge Instructions: Hospital Course: 58 year-old female patient presented with gait ataxia, elevated liver enzymes, tremors, Was noted to have transaminitis. Parkinson's-like gait, Condition improved with Valium. IV fluids. Patient was evaluated by neurology. Physical therapy evaluation For gait training evaluation. MRI of the brain no acute abnormality. MRI of the cervical spine IMPRESSION: Moderate spondylotic cervical spine changes as above, with up to mild central canal stenosis at C4-5 and at least moderate degrees of neural foraminal narrowing bilaterally at that level. Milder degrees of neural foraminal narrowing at other levels as detailed above. CT of the head no large vessel occlusion. Patient tolerating diet, stable for discharge to home with follow-up appointment with primary care physician. Need to follow-up with neurology after to discharge PROBLEM: Ataxia Parkinson-like gait evaluated by physical therapy Tremors improved Transaminitis Hyponatremia improved with IV fluid Neurosurgical evaluate Plan: The patient needs a GI workup for her liver-related issues, perhaps evaluate gallbladder. Also, may consider adding a beta-barbara, propranolol, which may be helpful for her tremor. No evidence of seizure activity and no EEG is indicated at this point. The patient may have short-term benzodiazepine with hoping tapering off within a week. She may be discharged home once worked up by GI and follow up in Dr. Luis's clinic within a month. Continue home medicines as previously prescribed GOAL: Clear understanding of disease process INSTRUCTIONS: Physician Discharge Instructions: -DC IV and DC home -Follow-up with PCP in 1 to 2 weeks -Follow-up with neurology, movement disorder specialist, and gastroenterology/mobile application architect over the next 2 to 4 weeks -Please call Dr. Heart at [phone] if any questions regarding hospital stay -Please call nursing station at [phone] if any nursing or medication questions -Return to the emergency room if symptoms worsen Diet: Regular Activity: Fall precautions Followup: Maximino Luis MD [ASSOCIATE-ACTIVE - CAN ADMIT] - 1-2 Weeks Chris Esteves MD [ACTIVE - CAN ADMIT] - 1-2 Weeks Farrukh Ruby MD [Primary Care Provider] - Time spent managing pt's care (in minutes): 55
[2023-08-19] MEDS: MAGNESIUM SULFATE 1 gm IVPB 1 GM/100 ML BAG IV ONE (08:47)
[2023-08-19 10:45] VITALS: BP 119/84; TEMP 97.4
--- NOTE | 2023-08-19 20:39 | P.PN ---
Date of Service: 08/19/23 Vital Signs Temp Pulse Resp BP Pulse Ox 97.4 F 75 14 119/84 99 08/19/23 08:00 08/19/23 08:00 08/19/23 08:00 08/19/23 08:00 08/19/23 08:00 Microbiology Results 08/17/23 07:37 Clean Catch Urine Cisco Count - Preliminary >100,000 CFU/ML. 08/17/23 07:37 Clean Catch Urine - Preliminary MIXED RICH. Assessment/ Plan: Nephrology No dyspnea No chest pain No acute events overnight Vitals, medications, blood work and imaging reviewed in the chart General: Oriented x3, Cooperative HEENT: Atraumatic Neck: Supple Respiratory: Normal air movement Cardiovascular: No edema, Regular rate/rhythm Gastrointestinal: Soft and benign, Non-distended Musculoskeletal: No clubbing, No contractures Integumentary: No rashes, No cyanosis Neurological: Normal speech Laboratory Data (last 24 hrs) 08/17/23 08/17/23 08/17/23 07:34 07:34 07:34 WBC 4.20 L Hgb 14.4 Hct 43.0 Plt Count 184 PT 10.2 INR 0.93 APTT 31.5 Sodium 127 L Potassium 4.3 BUN 8 Creatinine 0.70 Glucose 132 H Magnesium 1.6 Total Bilirubin 1.7 H AST 112 H ALT 65 H Alkaline Phosphatase 141 H Imagings Data: [id number] EXAM DESCRIPTION: [facility] Single View08/17/2023 7:56 am CLINICAL HISTORY: Shortness of breath COMPARISON: none FINDINGS: Lungs are hyperaerated. The lungs appear clear of acute infiltrate. The heart is normal size IMPRESSION: No acute abnormalities displayed [id number] EXAM DESCRIPTION: US - Abdomen Exam Limited - 08/17/2023 8:46 am CLINICAL HISTORY: Abdominal pain. abnormal LFT COMPARISON: None. FINDINGS: A cholecystectomy has been performed Increased hepatic echotexture. A lesion not seen The biliary tree is normal caliber. Spleen measures 8 centimeters IMPRESSION: Increased hepatic echotexture consistent with fatty infiltration Conclusions/Impression: Hyponatremia -Continue IVF with NS HTN Tachycardia -Consider Propranolol Hyperglycemia A1C 5.5 -Low sugar diet Elevated AST/ ALT Alcoholic Hepatitis Fatty Liver -Monitor LFT Macrocytosis -B12 normal -Continue MVI Case reviewed with the hospitalist team
== END 2023-08-19 10:49 | disposition home or self-care (01) | DRG 57 ==
LOC: ER 06:49 → ERHOLD 10:26 → 4TH 18:05
PROVIDERS: ADMIT Hospitalist; ATTEND Hospitalist
DX: G20.C Parkinsonism, unspecified (principal); E87.1 Hypo-osmolality and hyponatremia; N30.00 Acute cystitis without hematuria; I10 Essential (primary) hypertension; E78.5 Hyperlipidemia, unspecified; K70.0 Alcoholic fatty liver; K70.10 Alcoholic hepatitis without ascites; D75.89 Other specified diseases of blood and blood-forming organs; R73.9 Hyperglycemia, unspecified; R26.0 Ataxic gait; R74.01 Elevation of levels of liver transaminase levels; Z79.4 Long term (current) use of insulin; Z88.2 Allergy status to sulfonamides; Z79.899 Other long term (current) drug therapy; Z90.710 Acquired absence of both cervix and uterus; Z87.891 Personal history of nicotine dependence
CPT/HCPCS: 36415; 70450; 70496; 70498; 70551; 71045; 71275; 72141; 76705; 80048; 80053; 80076; 81001; 82140; 82607; 83036; 83735; 84100; 84439; 84443; 84484; 84550; 85025; 85610; 85730; 87086; 87088; 93005; 97116; 97161; 99285; J1650; J3360; J3475; J7030; Q9967